=== PATIENT | male | born 1955 | race Caucasian/White ===

== ENCOUNTER 2016-12-21 00:43 | Inpatient (IN) | payer OTHER ==
[~2016-12-21] VITALS: Ht 175.3 cm; Wt 115.0 kg
[~2016-12-21 00:43] MED LIST: ALBU6.7H INH; AMLO10TA2 PO; CLON1PAT8 TP; FINA1TAB16 PO; FLUT1DIS3 INH; FURO20TA3 PO; GABA300C10 PO; HYDR25TA6 PO; LIBRIUM; LISI40TA PO; LOSA50TA6 PO; METF10002 PO; METO50TA82 PO; MONT10TA9 PO; OXYGEN INH; POTASSIUM PO; PRED10TA PO; TRAZ100T15 PO
[2016-12-21] MEDS ORDERED: ASPIRIN 81 MG TABLET CHEW PO ONE ×2 (02:00→02:30)
[2016-12-21] MEDS ORDERED: FUROSEMIDE 40 MG/4 ML IV ONE (02:00)
[2016-12-21] MEDS ORDERED: SODIUM CHLORIDE FLUSH 10ML SYR IVF ONE (02:00)
[2016-12-21] MEDS ORDERED: ENALAPRILAT 1.25 MG/ML, 2ML IV ONE (02:00)
[2016-12-21] MEDS ORDERED: FUROSEMIDE 20 MG/2 ML ONE (02:08)
[2016-12-21] MEDS ORDERED: ASPIRIN 81 MG TABLET CHEW ONE (02:08)
[2016-12-21] MEDS ORDERED: ENALAPRILAT 1.25 MG/ML, 2ML ONE (02:08)
[2016-12-21 02:12] LABS: ASPARTATE AMINO TRANSFERASE 55 U/L (15-37); BLOOD UREA NITROGEN 39 mg/dL (7-18)
[2016-12-21 02:18] LABS: IS PT STATUS REG ER OR PRE ER? YES
[2016-12-21] MEDS ORDERED: CEFTRIAXONE PMX 1GM/50ML 50 ML ONE (02:28)
[2016-12-21] MEDS ORDERED: AZITHROMYCIN 500 MG in SODIUM CHLORIDE 0.9% 250 ML IV ONE (02:30)
[2016-12-21] MEDS ORDERED: CEFTRIAXONE PMX 1GM/50ML 50 ML IV ONE (02:30)
[2016-12-21] MEDS ORDERED: ACETAMINOPHEN 325 MG TABLET PO PRN (04:30)
[2016-12-21] MEDS ORDERED: DOCUSATE 100 MG CAPSULE PO PRN (04:30)
[2016-12-21] MEDS ORDERED: BISACODYL 10 MG SUPP PR PRN (04:30)
[2016-12-21] MEDS ORDERED: POLYETHYLENE GLYCOL 17 GM PACKET PO PRN (04:30)
[2016-12-21] MEDS ORDERED: LABETALOL 5MG/ML, 20ML IV PRN (04:30)
[2016-12-21] MEDS: ONDANSETRON 2MG/ML, 2ML IVP PRN ×2 (04:48→10:46)
[2016-12-21 04:50] VITALS: BP 157/91
[2016-12-21] MEDS: AMPICILLIN/SULBACTAM 3 GM in SODIUM CHLORIDE 0.9% 100 ML IV SCH ×4 (05:20→22:36)
[2016-12-21 05:32] LABS: PATH.CAST-FLAG NOT PRESENT; SPERM-FLAG NOT PRESENT; SRC-FLAG NOT PRESENT; XTAL-FLAG NOT PRESENT; YLC-FLAG NOT PRESENT
[2016-12-21] MEDS: HEPARIN 5,000 UNITS/ML, 1ML SQ SCH ×3 (05:32→23:00)
[2016-12-21] MEDS ORDERED: ALBUTEROL SULFATE 2.5 MG/3 ML ONE (06:56)
[2016-12-21] MEDS: INSULIN ASPART 100 UNITS/ML, PEN SQ-INSULIN SCH ×4 (07:00→21:27)
[2016-12-21 07:36] VITALS: BP 150/93
[2016-12-21 08:08] LABS: BLOOD UREA NITROGEN 40 mg/dL (7-18)
[2016-12-21 08:20] LABS: IS PT STATUS REG ER OR PRE ER? NO
[2016-12-21] MEDS: FLUTICASONE/VILANTEROL 100-25MCG/INH INH SCH (09:00)
[2016-12-21] MEDS: GABAPENTIN 300 MG CAPSULE PO SCH ×3 (10:30→21:26)
[2016-12-21] MEDS: AMLODIPINE 5 MG TABLET PO SCH (10:30)
[2016-12-21] MEDS: HYDROCHLOROTHIAZIDE 25 MG TABLET PO SCH (10:30)
[2016-12-21] MEDS: METOPROLOL TARTRATE 50 MG TABLET PO SCH ×2 (10:30→21:26)
[2016-12-21] MEDS: FINASTERIDE 5 MG TABLET PO SCH (10:30)
[2016-12-21] MEDS: THIAMINE 100MG TABLET PO SCH (10:30)
[2016-12-21] MEDS: FOLIC ACID 1 MG TABLET PO SCH (10:30)
[2016-12-21] MEDS: MONTELUKAST 10 MG TABLET PO SCH (10:30)
[2016-12-21] MEDS: FUROSEMIDE 40 MG/4 ML IV SCH ×2 (10:36→17:18)
[2016-12-21] MEDS: ALBUTEROL SULFATE 2.5 MG/3 ML NPPB SCH ×3 (11:10→20:00)
[2016-12-21 14:53] LABS: IS PT STATUS REG ER OR PRE ER? NO
[2016-12-21] MEDS: methylPREDNISolone SOD SUCC 125 MG/2 ML IVPush SCH ×2 (15:11→21:26)
[2016-12-21 15:52] VITALS: BP 156/99
[2016-12-21] MEDS: PHENOL THROAT SPRAY BOTTLE MM PRN (18:00)
[2016-12-21 20:17] VITALS: BP 160/95
[2016-12-21] MEDS: TRAZODONE 50MG TABLET PO PRN (22:44)
[2016-12-22 02:00] VITALS: BP 145/82
[2016-12-22] MEDS: AMPICILLIN/SULBACTAM 3 GM in SODIUM CHLORIDE 0.9% 100 ML IV SCH ×4 (03:46→22:38)
[2016-12-22] MEDS: methylPREDNISolone SOD SUCC 125 MG/2 ML IVPush SCH ×3 (03:46→21:20)
[2016-12-22] MEDS: PHENOL THROAT SPRAY BOTTLE MM PRN ×2 (03:47→08:26)
[2016-12-22] MEDS: ALBUTEROL SULFATE 2.5 MG/3 ML NPPB SCH ×5 (04:40→19:10)
[2016-12-22 06:06] LABS: BLOOD UREA NITROGEN 38 mg/dL (7-18)
[2016-12-22] MEDS: HEPARIN 5,000 UNITS/ML, 1ML SQ SCH ×3 (08:12→22:39)
[2016-12-22] MEDS: FOLIC ACID 1 MG TABLET PO SCH (08:13)
[2016-12-22] MEDS: GABAPENTIN 300 MG CAPSULE PO SCH ×3 (08:13→21:20)
[2016-12-22] MEDS: THIAMINE 100MG TABLET PO SCH (08:13)
[2016-12-22] MEDS: MONTELUKAST 10 MG TABLET PO SCH (08:13)
[2016-12-22] MEDS: HYDROCHLOROTHIAZIDE 25 MG TABLET PO SCH (08:13)
[2016-12-22] MEDS: FUROSEMIDE 40 MG/4 ML IV SCH ×2 (08:13→16:38)
[2016-12-22] MEDS: AMLODIPINE 5 MG TABLET PO SCH (08:13)
[2016-12-22] MEDS: METOPROLOL TARTRATE 50 MG TABLET PO SCH ×2 (08:13→21:21)
[2016-12-22] MEDS: FINASTERIDE 5 MG TABLET PO SCH (08:13)
[2016-12-22] MEDS: FLUTICASONE/VILANTEROL 100-25MCG/INH INH SCH (08:14)
[2016-12-22] MEDS: INSULIN ASPART 100 UNITS/ML, PEN SQ-INSULIN SCH ×4 (08:16→21:21)
[2016-12-22 08:47] VITALS: BP 120/80
[2016-12-22 13:48] VITALS: BP 135/75
[2016-12-22] MEDS ORDERED: LORazepam 2 MG/ML, 1ML IV PRN ×5 (14:30)
[2016-12-22] MEDS ORDERED: LORazepam 1MG TABLET PO PRN ×4 (14:30)
[2016-12-22] MEDS ORDERED: LORazepam 0.5MG TABLET PO PRN (14:30)
[2016-12-22] MEDS: DOXYCYCLINE 100 MG in DEXTROSE 5% 250 ML IV SCH (16:38)
[2016-12-22 19:02] VITALS: BP 129/78
[2016-12-22 20:36] LABS: RAPID INFLUENZA A Negative (Negative); RAPID INFLUENZA B Negative (Negative)
[2016-12-22] MEDS: TRAZODONE 50MG TABLET PO PRN (22:39)
[2016-12-23] MEDS: DOXYCYCLINE 100 MG in DEXTROSE 5% 250 ML IV SCH (01:24)
[2016-12-23 02:25] VITALS: BP 144/94
[2016-12-23] MEDS: methylPREDNISolone SOD SUCC 125 MG/2 ML IVPush SCH ×2 (05:09→12:35)
[2016-12-23] MEDS: AMPICILLIN/SULBACTAM 3 GM in SODIUM CHLORIDE 0.9% 100 ML IV SCH ×2 (05:10→10:10)
[2016-12-23] MEDS: ALBUTEROL SULFATE 2.5 MG/3 ML NPPB SCH ×4 (07:07→19:27)
[2016-12-23 07:14] LABS: BLOOD UREA NITROGEN 34 mg/dL (7-18)
[2016-12-23 07:19] VITALS: BP 128/84
[2016-12-23] MEDS: HYDROCHLOROTHIAZIDE 25 MG TABLET PO SCH (08:04)
[2016-12-23] MEDS: FOLIC ACID 1 MG TABLET PO SCH (08:04)
[2016-12-23] MEDS: GABAPENTIN 300 MG CAPSULE PO SCH ×3 (08:04→21:01)
[2016-12-23] MEDS: FINASTERIDE 5 MG TABLET PO SCH (08:05)
[2016-12-23] MEDS: THIAMINE 100MG TABLET PO SCH (08:05)
[2016-12-23] MEDS: AMLODIPINE 5 MG TABLET PO SCH (08:05)
[2016-12-23] MEDS: MONTELUKAST 10 MG TABLET PO SCH (08:05)
[2016-12-23] MEDS: HEPARIN 5,000 UNITS/ML, 1ML SQ SCH ×2 (08:05→16:36)
[2016-12-23] MEDS: FUROSEMIDE 40 MG/4 ML IV SCH (08:06)
[2016-12-23] MEDS: TAMSULOSIN 0.4 MG CAP.ER.24H PO SCH (08:07)
[2016-12-23] MEDS: INSULIN ASPART 100 UNITS/ML, PEN SQ-INSULIN SCH ×4 (08:07→21:01)
[2016-12-23] MEDS: METOPROLOL TARTRATE 50 MG TABLET PO SCH ×2 (10:17→21:01)
[2016-12-23] MEDS: FLUTICASONE/VILANTEROL 100-25MCG/INH INH SCH (10:17)
[2016-12-23 14:00] VITALS: BP 137/80
[2016-12-23] MEDS: metroNIDAZOLE 500 MG TABLET PO SCH ×2 (16:35→21:01)
[2016-12-23] MEDS: ASPIRIN 81 MG TABLET EC PO SCH (16:35)
[2016-12-23 20:58] VITALS: BP 137/80
[2016-12-23] MEDS: CEFDINIR 300 MG CAPSULE PO SCH (21:02)
[2016-12-23] MEDS: DOXYCYCLINE 100MG TABLET PO SCH (21:02)
[2016-12-24] MEDS: TRAZODONE 50MG TABLET PO PRN (00:09)
[2016-12-24] MEDS: HEPARIN 5,000 UNITS/ML, 1ML SQ SCH ×3 (00:09→16:24)
[2016-12-24 02:55] VITALS: BP 156/100
[2016-12-24 05:06] LABS: BLOOD UREA NITROGEN 28 mg/dL (7-18)
[2016-12-24] MEDS: ASPIRIN 81 MG TABLET EC PO SCH (05:21)
[2016-12-24] MEDS: INSULIN ASPART 100 UNITS/ML, PEN SQ-INSULIN SCH ×2 (07:00→12:56)
[2016-12-24] MEDS: ALBUTEROL SULFATE 2.5 MG/3 ML NPPB SCH ×2 (07:33→10:37)
[2016-12-24 07:57] VITALS: BP 136/77
[2016-12-24] MEDS ORDERED: REGADENOSON 0.4 MG/5 ML SYRINGE ONE (08:43)
[2016-12-24] MEDS ORDERED: FUROSEMIDE 20 MG TABLET PO SCH (09:00)
[2016-12-24] MEDS ORDERED: NEUTRA PHOS K 250 MG TABLET PO ONE (11:00)
[2016-12-24] MEDS: AMLODIPINE 5 MG TABLET PO SCH (11:53)
[2016-12-24] MEDS: METOPROLOL TARTRATE 50 MG TABLET PO SCH (11:53)
[2016-12-24] MEDS: metroNIDAZOLE 500 MG TABLET PO SCH ×2 (11:53→16:23)
[2016-12-24] MEDS: FINASTERIDE 5 MG TABLET PO SCH (11:53)
[2016-12-24] MEDS: TAMSULOSIN 0.4 MG CAP.ER.24H PO SCH (11:53)
[2016-12-24] MEDS: FOLIC ACID 1 MG TABLET PO SCH (11:53)
[2016-12-24] MEDS: THIAMINE 100MG TABLET PO SCH (11:54)
[2016-12-24] MEDS: HYDROCHLOROTHIAZIDE 25 MG TABLET PO SCH (11:54)
[2016-12-24] MEDS: MONTELUKAST 10 MG TABLET PO SCH (11:54)
[2016-12-24] MEDS: CEFDINIR 300 MG CAPSULE PO SCH (11:54)
[2016-12-24] MEDS: GABAPENTIN 300 MG CAPSULE PO SCH ×2 (11:55→16:23)
[2016-12-24] MEDS: DOXYCYCLINE 100MG TABLET PO SCH (11:55)
[2016-12-24] MEDS: FLUTICASONE/VILANTEROL 100-25MCG/INH INH SCH (11:55)
[2016-12-24 14:00] VITALS: BP 130/86
[2016-12-24] MEDS ORDERED: ASPI-621 PO (15:11)
[2016-12-24] MEDS ORDERED: CEFD300C37 PO (15:11)
[2016-12-24] MEDS ORDERED: DOXY100T PO (15:11)
[2016-12-24] MEDS ORDERED: FOLI-17 PO (15:11)
[2016-12-24] MEDS ORDERED: METR500T PO (15:11)
[2016-12-24] MEDS ORDERED: TAMS-11 PO (15:11)
[2016-12-24] MEDS ORDERED: THIA100T6 PO (15:11)
[2016-12-24] MEDS ORDERED: PRED10TA PO (15:11)
[2016-12-24] MEDS ORDERED: POTASSIUM CHLORIDE 20 MEQ TAB.ER.PRT PO SCH (17:00)
== END 2016-12-24 18:00 | disposition home or self-care (01) | DRG 871 ==
LOC: ED 01:42 → EDIP 02:23 → 5SO 03:47 → DCLOUNGE 12-24 17:21
PROVIDERS: ADMIT Internal Medicine; ATTEND Internal Medicine
PROC: HZ34ZZZ Individual Counseling for Substance Abuse Treatment, Interpersonal (ICD-10-PCS; principal; 2016-12-21)
PROC: HZ2ZZZZ Detoxification Services for Substance Abuse Treatment (ICD-10-PCS; 2016-12-21)
DX: A41.9 Sepsis, unspecified organism (principal); I21.4 Non-ST elevation (NSTEMI) myocardial infarction; I50.33 Acute on chronic diastolic (congestive) heart failure; J96.20 Acute and chronic respiratory failure, unspecified whether with hypoxia or hypercapnia; J69.0 Pneumonitis due to inhalation of food and vomit; J44.1 Chronic obstructive pulmonary disease with (acute) exacerbation; N17.9 Acute kidney failure, unspecified; E87.1 Hypo-osmolality and hyponatremia; E87.2 Acidosis; J98.11 Atelectasis; E87.5 Hyperkalemia; E11.9 Type 2 diabetes mellitus without complications; I12.9 Hypertensive chronic kidney disease with stage 1 through stage 4 chronic kidney disease, or unspecified chronic kidney disease; F10.229 Alcohol dependence with intoxication, unspecified; Y90.9 Presence of alcohol in blood, level not specified; E66.01 Morbid (severe) obesity due to excess calories; I77.819 Aortic ectasia, unspecified site; N40.0 Benign prostatic hyperplasia without lower urinary tract symptoms; R65.20 Severe sepsis without septic shock; Z79.82 Long term (current) use of aspirin; Z87.891 Personal history of nicotine dependence; Z68.37 Body mass index [BMI] 37.0-37.9, adult; Z79.84 Long term (current) use of oral hypoglycemic drugs; Z79.899 Other long term (current) drug therapy
CPT/HCPCS: 36415; 71010; 71020; 76770; 78452; 80048; 80053; 80061; 80307; 81001; 82436; 82570; 82607; 82746; 82962; 83605; 83735; 83880; 84100; 84133; 84145; 84300; 84443; 84484; 85025; 85610; 87040; 87046; 87070; 87205; 87324; 87328; 87329; 87400; 93005; 93017; 93306; 94640; 96365; 96375; J0295; J0456; J0696; J1644; J1815; J1940; J2405; J2785; J7060; J7613; A9502; C9898; J2930; J7050; J7512

== ENCOUNTER 2017-04-29 11:35 | Inpatient (IN) | payer OTHER ==
[~2017-04-29] VITALS: Ht 177.8 cm; Wt 112.6 kg
[~2017-04-29 11:35] MED LIST changes: +ASPI-621 PO; +CEFD300C37 PO; +DOXY100T PO; +FOLI-17 PO; +METR500T PO; +TAMS-11 PO; +THIA100T6 PO
[2017-04-29] MEDS ORDERED: SODIUM CHLORIDE FLUSH 10ML SYR IVF ONE (12:00)
[2017-04-29 12:23] LABS: HEMATOCRIT 46.1 % (39.2-51.8); HEMOGLOBIN 15.4 g/dL (13.7-18.0); WHITE BLOOD COUNT 10.6 x10^3/uL (3.4-10)
[2017-04-29 12:37] LABS: ASPARTATE AMINO TRANSFERASE 17 U/L (15-37); BLOOD UREA NITROGEN 34 mg/dL (7-18)
[2017-04-29 12:44] LABS: IS PT STATUS REG ER OR PRE ER? YES
[2017-04-29] MEDS ORDERED: ONDANSETRON 2MG/ML, 2ML ONE (13:09)
[2017-04-29] MEDS ORDERED: FAMOTIDINE 20 MG/2 ML ONE (13:09)
[2017-04-29] MEDS ORDERED: MAALOX/HYOSCYAMINE/LIDOCAINE 45 ML BTL ONE (13:10)
[2017-04-29] MEDS ORDERED: LORazepam 2 MG/ML, 1ML ONE (13:11)
[2017-04-29] MEDS ORDERED: FAMOTIDINE 20 MG/2 ML IVPush ONE (13:30)
[2017-04-29] MEDS ORDERED: ONDANSETRON 2MG/ML, 2ML IVPush ONE (13:30)
[2017-04-29] MEDS ORDERED: MAALOX/HYOSCYAMINE/LIDOCAINE 45 ML BTL PO ONE (13:30)
[2017-04-29] MEDS ORDERED: LORazepam 2 MG/ML, 1ML IVPush ONE (13:30)
[2017-04-29] MEDS ORDERED: POLYETHYLENE GLYCOL 17 GM PACKET PO PRN (14:00)
[2017-04-29] MEDS ORDERED: GLUCAGON 1 MG IM PRN (14:00)
[2017-04-29] MEDS ORDERED: NITROGLYCERIN 0.4 MG/SPRAY SL PRN (14:00)
[2017-04-29] MEDS ORDERED: LORazepam 1MG TABLET PO PRN (14:00)
[2017-04-29] MEDS ORDERED: BISACODYL 10 MG SUPP PR PRN (14:00)
[2017-04-29] MEDS ORDERED: ACETAMINOPHEN 325 MG TABLET PO PRN (14:00)
[2017-04-29] MEDS ORDERED: DOCUSATE 100 MG CAPSULE PO PRN (14:00)
[2017-04-29] MEDS ORDERED: DEXTROSE 4 GM TAB.CHEW PO PRN (14:00)
[2017-04-29] MEDS ORDERED: LABETALOL 5MG/ML, 20ML IVPush PRN (14:00)
[2017-04-29] MEDS ORDERED: ONDANSETRON 2MG/ML, 2ML IVPush PRN (14:00)
[2017-04-29] MEDS ORDERED: DEXTROSE 50%, 50ML SYRINGE IVPush PRN (14:00)
[2017-04-29] MEDS ORDERED: FUROSEMIDE 20 MG/2 ML IV ONE (14:00)
[2017-04-29] MEDS ORDERED: ONDANSETRON ODT 4 MG PO PRN (14:00)
[2017-04-29] MEDS ORDERED: MORPHINE SULFATE 4 MG/ML, 1ML IVPush PRN (14:00)
[2017-04-29 15:10] VITALS: BP 177/93
[2017-04-29] MEDS ORDERED: ALBUTEROL SULFATE 2.5 MG/3 ML ONE (15:54)
[2017-04-29] MEDS ORDERED: ALBUTEROL SULFATE 2.5 MG/3 ML NPPB PRN (16:30)
[2017-04-29] MEDS: GABAPENTIN 300 MG CAPSULE PO SCH ×2 (17:28→22:06)
[2017-04-29] MEDS: ENOXAPARIN 40 MG/0.4 ML SQ SCH (17:28)
[2017-04-29] MEDS: INSULIN ASPART 100 UNITS/ML, PEN SQ-INSULIN SCH ×2 (17:39→22:10)
[2017-04-29 19:18] LABS: IS PT STATUS REG ER OR PRE ER? NO
[2017-04-29 19:43] VITALS: BP 169/96
[2017-04-29] MEDS: ALBUTEROL SULFATE 2.5 MG/3 ML NPPB SCH (20:00)
[2017-04-29] MEDS ORDERED: LORazepam 2 MG/ML, 1ML IVPush PRN (20:00)
[2017-04-29 20:27] LABS: PATH.CAST-FLAG NOT PRESENT; SPERM-FLAG NOT PRESENT; SRC-FLAG NOT PRESENT; XTAL-FLAG NOT PRESENT; YLC-FLAG NOT PRESENT
[2017-04-29] MEDS ORDERED: TRAZODONE 100MG TABLET PO SCH (21:00)
[2017-04-29] MEDS: METOPROLOL TARTRATE 50 MG TABLET PO SCH (22:06)
[2017-04-29] MEDS: SODIUM CHLORIDE FLUSH 10ML SYR IVF SCH (22:06)
[2017-04-30 01:04] LABS: IS PT STATUS REG ER OR PRE ER? NO
[2017-04-30 01:56] VITALS: BP 159/88
[2017-04-30 05:44] LABS: HEMATOCRIT 44.6 % (39.2-51.8); HEMOGLOBIN 14.9 g/dL (13.7-18.0); WHITE BLOOD COUNT 7.4 x10^3/uL (3.4-10)
[2017-04-30] MEDS ORDERED: ASPIRIN 81 MG TABLET EC PO SCH (06:00)
[2017-04-30 06:10] LABS: ASPARTATE AMINO TRANSFERASE 12 U/L (15-37); BLOOD UREA NITROGEN 26 mg/dL (7-18)
[2017-04-30 06:19] LABS: DIFF TOTAL CELLS COUNTED 100 CELL DIFF
[2017-04-30] MEDS: OXYcodone IR 5MG TABLET PO PRN ×2 (06:28→12:55)
[2017-04-30 06:44] LABS: VERIFY COUNTS? YES
[2017-04-30] MEDS: INSULIN ASPART 100 UNITS/ML, PEN SQ-INSULIN SCH ×3 (07:00→16:00)
[2017-04-30] MEDS: ALBUTEROL SULFATE 2.5 MG/3 ML NPPB SCH ×3 (07:44→15:04)
[2017-04-30] MEDS ORDERED: TAMSULOSIN 0.4 MG CAP.ER.24H PO SCH (09:00)
[2017-04-30] MEDS ORDERED: THIAMINE 100MG TABLET PO SCH (09:00)
[2017-04-30] MEDS ORDERED: MONTELUKAST 10 MG TABLET PO SCH (09:00)
[2017-04-30] MEDS ORDERED: FOLIC ACID 1 MG TABLET PO SCH (09:00)
[2017-04-30] MEDS ORDERED: FUROSEMIDE 20 MG TABLET PO SCH (09:00)
[2017-04-30] MEDS ORDERED: LISINOPRIL 20 MG TABLET PO SCH (09:00)
[2017-04-30 09:04] VITALS: BP 161/92
[2017-04-30] MEDS: SODIUM CHLORIDE FLUSH 10ML SYR IVF SCH (09:11)
[2017-04-30] MEDS: GABAPENTIN 300 MG CAPSULE PO SCH ×2 (09:11→16:19)
[2017-04-30] MEDS: METOPROLOL TARTRATE 50 MG TABLET PO SCH (09:11)
[2017-04-30] MEDS ORDERED: FUROSEMIDE 40 MG/4 ML IV ONE (09:30)
[2017-04-30 10:12] VITALS: BP 152/83
[2017-04-30] MEDS: AMLODIPINE 5 MG TABLET PO SCH ×2 (10:13→12:41)
[2017-04-30] MEDS: ENOXAPARIN 40 MG/0.4 ML SQ SCH (16:00)
== END 2017-04-30 17:44 | disposition home or self-care (01) | DRG 896 ==
LOC: ED 12:20 → EDIP 12:50 → 5SO 15:12
PROVIDERS: ADMIT Internal Medicine; ATTEND Internal Medicine
DX: F10.229 Alcohol dependence with intoxication, unspecified (principal); I50.33 Acute on chronic diastolic (congestive) heart failure; J96.10 Chronic respiratory failure, unspecified whether with hypoxia or hypercapnia; E87.2 Acidosis; I11.0 Hypertensive heart disease with heart failure; E11.42 Type 2 diabetes mellitus with diabetic polyneuropathy; D72.829 Elevated white blood cell count, unspecified; D75.89 Other specified diseases of blood and blood-forming organs; E66.9 Obesity, unspecified; E87.5 Hyperkalemia; F41.1 Generalized anxiety disorder; G89.29 Other chronic pain; J44.9 Chronic obstructive pulmonary disease, unspecified; N40.0 Benign prostatic hyperplasia without lower urinary tract symptoms; Z87.891 Personal history of nicotine dependence; Z91.14 Patient's other noncompliance with medication regimen; Z99.81 Dependence on supplemental oxygen; I71.2 Thoracic aortic aneurysm, without rupture
CPT/HCPCS: 36415; 71010; 80053; 80307; 81001; 82962; 83690; 83735; 83880; 84100; 84132; 84484; 85025; 85610; 93005; 93970; 94640; 96374; 96375; J1650; J1815; J1940; J2405; J7613; J2060; S0028

== ENCOUNTER 2017-10-04 17:10 | Emergency (ER) | payer OTHER ==
[~2017-10-04] VITALS: Ht 177.8 cm; Wt 120.0 kg
[2017-10-04] MEDS ORDERED: OXYcodone/APAP 5/325MG TABLET ONE (18:49)
[2017-10-04] MEDS ORDERED: OXYcodone/APAP 5/325MG TABLET PO ONE (19:00)
[2017-10-04 19:12] LABS: BASOPHILS # (AUTO) 0.02 x10^3/uL (0-0.1); BASOPHILS % (AUTO) 0 % (0-1); EOSINOPHILS # (AUTO) 0.38 x10^3/uL (0-0.4); EOSINOPHILS % (AUTO) 3 % (1-7); LYMPHOCYTES # (AUTO) 0.99 x10^3/uL (1-3.4); LYMPHOCYTES % (AUTO) 8 % (22-44); MD NO; MEAN CORPUSCULAR HEMOGLOBIN 33.9 pg (27.5-34.5); MEAN CORPUSCULAR HGB CONC 33.6 g/dL (33.2-36.2); MEAN CORPUSCULAR VOLUME 100.9 fL (81-97); MONOCYTES # (AUTO) 0.59 x10^3/uL (0.2-0.8); MONOCYTES % (AUTO) 5 % (2-9); NEUTROPHILS # (AUTO) 10.79 x10^3/uL (1.8-6.8); NEUTROPHILS % (AUTO) 85 % (42-75); PLATELET COUNT 231 x10^3/uL (130-400); RED CELL DISTRIBUTION WIDTH 15.8 % (9.4-14.8)
[2017-10-04 19:26] LABS: ANION GAP 6 mmol/L (5-15); CALCIUM 9.6 mg/dL (8.5-10.1); CHLORIDE 102 mmol/L (98-107)
[2017-10-04 19:27] LABS: CREATININE 1.08 mg/dL (0.7-1.3)
[2017-10-04] MEDS ORDERED: COLCHICINE 0.6 MG TABLET PO ONE (20:00)
[2017-10-04 21:04] VITALS: BP 149/91
== END 2017-10-04 21:19 | disposition home or self-care (01) ==
LOC: ED 21:13
DX: M25.512 Pain in left shoulder (principal); M79.645 Pain in left finger(s); M13.0 Polyarthritis, unspecified; M10.9 Gout, unspecified; E11.9 Type 2 diabetes mellitus without complications; J44.9 Chronic obstructive pulmonary disease, unspecified; I50.9 Heart failure, unspecified; I11.0 Hypertensive heart disease with heart failure
CPT/HCPCS: 36415; 80048; 84550; 85025; 93005; 99285

== ENCOUNTER 2018-12-15 21:18 | Emergency (ER) | payer OTHER ==
[~2018-12-15] VITALS: Ht 177.8 cm; Wt 118.0 kg
[~2018-12-15 21:18] MED LIST changes: -AMLO10TA2 PO; +AMLO10TA8 PO; -ASPI-621 PO; +ASPI81TA45 PO; +GLYB2.5T2 PO; +LOSA50TA14 PO; -LOSA50TA6 PO; -THIA100T6 PO; +THIA100T67 PO; +TRAZ-137 PO; -TRAZ100T15 PO
--- NOTE | 2018-12-15 21:30 | NUR ---
CHARLES. REPORT RECEIVED FROM EMS. PT ETOH AT HOME AND HAD GLF, HITTING ON LEFT SIDE OF HEAD, SMALL LAC NOTED. BLEEDING CONTROLED. NO LOC. NO BACK/NECK PAIN. PT'S AOX4. RESPS EVEN AND UNLABORED. ALL MONITORS IN PLACE. CALL LIGHT WITHIN REACH. EKG DONE AT BEDSIDE BY EMT.
--- NOTE | 2018-12-15 21:47 | NUR ---
PT IN CT NOW.
[2018-12-15] MEDS ORDERED: LIDOCAINE-MPF 1%, 2ML ONE (21:53)
[2018-12-15] MEDS ORDERED: LIDOCAINE-MPF 1%, 5ML INFIL ONE (22:00)
--- NOTE | 2018-12-15 22:05 | NUR ---
PT BACK TO ROOM FROM CT.
[2018-12-15 22:19] LABS: BASOPHILS # (AUTO) 0.02 x10^3/uL (0-0.1); BASOPHILS % (AUTO) 0 % (0-1); EOSINOPHILS # (AUTO) 0.23 x10^3/uL (0-0.4); EOSINOPHILS % (AUTO) 3 % (1-7); LYMPHOCYTES # (AUTO) 1.43 x10^3/uL (1-3.4); LYMPHOCYTES % (AUTO) 16 % (22-44); MD NO; MEAN CORPUSCULAR HEMOGLOBIN 32.8 pg (27.5-34.5); MEAN CORPUSCULAR VOLUME 99.5 fL (81-97); MEAN PLATELET VOLUME 7.6 fL (7.4-10.4); MONOCYTES % (AUTO) 3 % (2-9); NEUTROPHILS # (AUTO) 7.11 x10^3/uL (1.8-6.8); NEUTROPHILS % (AUTO) 78 % (42-75); PLATELET COUNT 178 x10^3/uL (130-400); RED BLOOD COUNT 4.28 x10^6/uL (4.38-5.82); RED CELL DISTRIBUTION WIDTH 15.8 % (9.4-14.8)
[2018-12-15 22:27] LABS: INTERNATIONAL NORMALIZED RATIO 1.01 (0.93-1.1); PROTHROMBIN TIME 10.6 Seconds (9.6-11.5)
[2018-12-15 22:30] LABS: ALBUMIN 3.5 g/dL (3.4-5.0); ANION GAP 5 mmol/L (5-15); CALCIUM 9.5 mg/dL (8.5-10.1); CHLORIDE 100 mmol/L (98-107)
[2018-12-15] MEDS ORDERED: ALBUTEROL/IPRATROPIUM 2.5MG/0.5MG, 3 ML NPPB ONE (22:30)
[2018-12-15 22:34] LABS: ALANINE AMINOTRANSFERASE 26 U/L (12-78); ALKALINE PHOSPHATASE 92 U/L (45-117); BILIRUBIN,TOTAL 0.2 mg/dL (0.2-1.0); CREATININE 1.23 mg/dL (0.7-1.3); TOTAL PROTEIN 7.3 g/dL (6.4-8.2)
[2018-12-15] MEDS ORDERED: ALBUTEROL/IPRATROPIUM 2.5MG/0.5MG, 3 ML ONE ×2 (22:38→23:21)
[2018-12-15] MEDS ORDERED: LIDOCAINE 1%-EPI 1:100K, 20ML ONE (22:59)
--- NOTE | 2018-12-15 23:17 | NUR ---
PA APPLIED SUTURES ON WOUND. PT TOLERATED WELL.
--- NOTE | 2018-12-15 23:24 | NUR ---
RT AT BEDSIDE NOW.
[2018-12-15] MEDS ORDERED: ALBUTEROL SULFATE 2.5 MG/3 ML NPPB ONE (23:30)
--- NOTE | 2018-12-16 00:29 | NUR ---
PT IS ABLE TO AMB WITH STEADY GAIT. DC NOW.
[2018-12-16 00:53] VITALS: BP 132/85
--- NOTE | 2018-12-16 00:54 | NUR ---
PT GIVEN DC INSTRUCTIONS. PT'S AT BEDSIDE TO HELP PT. PT'S AOX4. RESPS EVEN AND UNLABORED. PT WHEELED TO DC. NO ACUTE DISTRESS AT DC.
== END 2018-12-16 00:55 | disposition home or self-care (01) ==
LOC: ED 21:21
DX: S01.81XA Laceration without foreign body of other part of head, initial encounter (principal); F10.221 Alcohol dependence with intoxication delirium; R41.0 Disorientation, unspecified; R51 Headache; W01.0XXA Fall on same level from slipping, tripping and stumbling without subsequent striking against object, initial encounter; Y93.01 Activity, walking, marching and hiking; Y92.009 Unspecified place in unspecified non-institutional (private) residence as the place of occurrence of the external cause; Y99.8 Other external cause status
CPT/HCPCS: 12052; 36415; 70450; 72125; 80053; 80307; 83735; 85025; 85610; 85730; 93005; 94640; 99284; J7620

== ENCOUNTER 2019-01-16 13:47 | Observation (INO) | payer OTHER ==
[~2019-01-16] VITALS: Ht 177.8 cm; Wt 126.1 kg
[2019-01-16] MEDS ORDERED: SODIUM CHLORIDE FLUSH 10ML SYR IVF ONE (14:30)
--- NOTE | 2019-01-16 14:38 | NUR ---
63 YEAR OLD MAN CALLED EMS BECAUSE HE WAS SOB AND HAD CHEST PAIN. PT REPORTS HE HAS COPD, ALWAYS ON 4 L. PT HAS HX OF HTN, DM, ARTHRITIS, CHF. PT IS ALERT/ORIENTED AND ANSWERS QUESTIONS APPROPRIATELY. PT REPORTS THAT YESTERDAY NIGHT, "I FELL AND HIT MY HEAD, THAT IS HOW I GOT THIS CUT ON MY HEAD" PT ALSO STATES, "I HAD ABOUT A PINT OF ALCOHOL TO DRINK WHEN I FELL".
[2019-01-16 14:48] LABS: BASOPHILS # (AUTO) 0.03 x10^3/uL (0-0.1); BASOPHILS % (AUTO) 0 % (0-1); EOSINOPHILS % (AUTO) 0 % (1-7); LYMPHOCYTES # (AUTO) 0.33 x10^3/uL (1-3.4); LYMPHOCYTES % (AUTO) 3 % (22-44); MD NO; MEAN CORPUSCULAR HEMOGLOBIN 33.6 pg (27.5-34.5); MEAN CORPUSCULAR HGB CONC 33.7 g/dL (33.2-36.2); MEAN CORPUSCULAR VOLUME 99.7 fL (81-97); MEAN PLATELET VOLUME 7.6 fL (7.4-10.4); MONOCYTES # (AUTO) 0.66 x10^3/uL (0.2-0.8); MONOCYTES % (AUTO) 7 % (2-9); NEUTROPHILS # (AUTO) 9.08 x10^3/uL (1.8-6.8); NEUTROPHILS % (AUTO) 90 % (42-75); PLATELET COUNT 133 x10^3/uL (130-400); RED BLOOD COUNT 3.86 x10^6/uL (4.38-5.82); RED CELL DISTRIBUTION WIDTH 15.3 % (9.4-14.8)
[2019-01-16 14:57] LABS: INTERNATIONAL NORMALIZED RATIO 0.98 (0.93-1.1); PROTHROMBIN TIME 10.3 Seconds (9.6-11.5)
[2019-01-16 15:00] LABS: ALANINE AMINOTRANSFERASE 29 U/L (12-78); ALBUMIN 3.4 g/dL (3.4-5.0); ANION GAP 13 mmol/L (5-15); CALCIUM 8.9 mg/dL (8.5-10.1); CHLORIDE 95 mmol/L (98-107)
[2019-01-16 15:04] LABS: ALKALINE PHOSPHATASE 105 U/L (45-117); BILIRUBIN,TOTAL 1.4 mg/dL (0.2-1.0); TROPONIN I 0.035 ng/mL (0.000-0.045)
[2019-01-16] MEDS ORDERED: LORazepam 2 MG/ML, 1ML IVPush ONE (16:00)
[2019-01-16] MEDS ORDERED: MAGNESIUM SULFATE 1 GM, THIAMINE 100 MG, FOLIC ACID 1 MG, MVI ADULT 10 ML in SODIUM CHL... IV ONE (16:00)
[2019-01-16] MEDS ORDERED: SODIUM CHLORIDE 0.9% 1,000 ML IV SCH (16:17)
[2019-01-16] MEDS ORDERED: LORazepam 2 MG/ML, 1ML IV PRN ×4 (16:30)
[2019-01-16] MEDS ORDERED: ONDANSETRON 2MG/ML, 2ML IVPush PRN (16:30)
[2019-01-16] MEDS ORDERED: CHLORDIAZEPOXIDE 25 MG CAPSULE PO PRN (16:30)
[2019-01-16] MEDS ORDERED: LORazepam 0.5MG TABLET PO PRN (16:30)
[2019-01-16] MEDS ORDERED: GABAPENTIN 300 MG CAPSULE PO PRN (16:30)
[2019-01-16] MEDS ORDERED: LORazepam 1MG TABLET PO PRN ×3 (16:30)
[2019-01-16] MEDS ORDERED: THIAMINE 100MG TABLET PO ONE (16:30)
[2019-01-16] MEDS ORDERED: ONDANSETRON ODT 4 MG PO PRN (16:30)
[2019-01-16] MEDS ORDERED: hydrALAzine 20 MG/ML, 1ML IVPush PRN (16:30)
[2019-01-16] MEDS ORDERED: LABETALOL 5 MG/ML SYRINGE IVPush PRN (16:30)
[2019-01-16] MEDS ORDERED: HYDROcodone/APAP 5/325 TABLET PO PRN (16:30)
[2019-01-16] MEDS ORDERED: morphine SULFATE 10 MG/ML, 1ML IVPush PRN (16:30)
[2019-01-16] MEDS ORDERED: ACETAMINOPHEN 325 MG TABLET PO PRN (16:30)
--- NOTE | 2019-01-16 16:36 | NUR ---
REPORT GIVEN TO LAUREL
[2019-01-16 16:47] LABS: HEMOGLOBIN A1C 6.8 % (4.2-6.3)
[2019-01-16 16:55] VITALS: BP 138/79
[2019-01-16] MEDS ORDERED: ALBUTEROL SULFATE 2.5 MG/3 ML NPPB PRN (17:00)
[2019-01-16 17:16] VITALS: BP 138/74
[2019-01-16] MEDS: CYCLOBENZAPRINE 10 MG TABLET PO SCH ×2 (17:41→20:44)
[2019-01-16] MEDS: OXYcodone IR 5MG TABLET PO SCH ×2 (17:41→20:44)
[2019-01-16] MEDS: GUAIFENESIN 200 MG TABLET PO SCH ×2 (17:42→20:43)
[2019-01-16] MEDS: INSULIN LISPRO 100 UNITS/ML, PEN SQ-INSULIN SCH ×2 (18:01→20:43)
[2019-01-16 19:56] VITALS: BP 115/68
[2019-01-16] MEDS: ALBUTEROL SULFATE 2.5 MG/3 ML NPPB SCH (20:00)
[2019-01-16] MEDS: METOPROLOL TARTRATE 50 MG TABLET PO SCH (20:44)
[2019-01-16] MEDS: GABAPENTIN 300 MG CAPSULE PO SCH (20:44)
[2019-01-17 02:41] VITALS: BP 126/77
[2019-01-17] MEDS: GUAIFENESIN 200 MG TABLET PO SCH ×4 (04:58→20:24)
[2019-01-17] MEDS: OXYcodone IR 5MG TABLET PO SCH ×4 (04:58→20:24)
[2019-01-17 06:19] LABS: ALANINE AMINOTRANSFERASE 23 U/L (12-78); ALBUMIN 2.6 g/dL (3.4-5.0); ANION GAP 7 mmol/L (5-15); CALCIUM 8.4 mg/dL (8.5-10.1); CHLORIDE 104 mmol/L (98-107); CREATININE 1.26 mg/dL (0.7-1.3)
[2019-01-17 06:21] LABS: ALKALINE PHOSPHATASE 88 U/L (45-117); BILIRUBIN,TOTAL 1.2 mg/dL (0.2-1.0); TOTAL PROTEIN 5.8 g/dL (6.4-8.2)
[2019-01-17] MEDS: ALBUTEROL SULFATE 2.5 MG/3 ML NPPB SCH ×4 (07:00→18:51)
[2019-01-17] MEDS: INSULIN LISPRO 100 UNITS/ML, PEN SQ-INSULIN SCH ×4 (07:00→20:24)
[2019-01-17] MEDS ORDERED: DEXTROSE 50%, 50ML SYRINGE IVPush PRN (07:30)
[2019-01-17] MEDS ORDERED: GLUCAGON 1 MG IM PRN (07:30)
[2019-01-17] MEDS ORDERED: DEXTROSE 4 GM TAB.CHEW PO PRN (07:30)
[2019-01-17 07:35] VITALS: BP 144/81
[2019-01-17 07:53] LABS: BASOPHILS # (AUTO) 0.03 x10^3/uL (0-0.1); BASOPHILS % (AUTO) 0 % (0-1); EOSINOPHILS # (AUTO) 0.04 x10^3/uL (0-0.4); EOSINOPHILS % (AUTO) 1 % (1-7); LYMPHOCYTES % (AUTO) 9 % (22-44); MD NO; MEAN CORPUSCULAR HEMOGLOBIN 33.5 pg (27.5-34.5); MEAN CORPUSCULAR VOLUME 101.3 fL (81-97); MEAN PLATELET VOLUME 8.1 fL (7.4-10.4); MONOCYTES # (AUTO) 0.61 x10^3/uL (0.2-0.8); MONOCYTES % (AUTO) 8 % (2-9); NEUTROPHILS # (AUTO) 6.73 x10^3/uL (1.8-6.8); NEUTROPHILS % (AUTO) 83 % (42-75); PLATELET COUNT 106 x10^3/uL (130-400); RED BLOOD COUNT 3.38 x10^6/uL (4.38-5.82); RED CELL DISTRIBUTION WIDTH 15.9 % (9.4-14.8)
[2019-01-17] MEDS: SODIUM CHLORIDE FLUSH 10ML SYR IVF SCH ×2 (09:00→20:25)
[2019-01-17] MEDS ORDERED: LISINOPRIL 40 MG TABLET PO SCH (09:00)
[2019-01-17] MEDS ORDERED: FOLIC ACID 1 MG TABLET PO SCH (09:00)
[2019-01-17] MEDS: FOLIC ACID 1 MG TABLET PO SCH (09:49)
[2019-01-17] MEDS: CYCLOBENZAPRINE 10 MG TABLET PO SCH ×3 (09:49→20:24)
[2019-01-17] MEDS: TAMSULOSIN 0.4 MG CAP.ER.24H PO SCH (09:49)
[2019-01-17] MEDS: GABAPENTIN 300 MG CAPSULE PO SCH ×3 (09:49→20:24)
[2019-01-17] MEDS: METOPROLOL TARTRATE 50 MG TABLET PO SCH ×2 (09:49→20:25)
[2019-01-17] MEDS: MONTELUKAST 10 MG TABLET PO SCH (09:49)
[2019-01-17] MEDS: MULTIVITAMIN 1 TABLET PO SCH (09:49)
[2019-01-17 13:22] VITALS: BP 102/60
[2019-01-17 19:28] VITALS: BP 95/59
[2019-01-18 03:03] VITALS: BP 113/71
[2019-01-18] MEDS: GUAIFENESIN 200 MG TABLET PO SCH ×3 (04:30→15:28)
[2019-01-18] MEDS: OXYcodone IR 5MG TABLET PO SCH ×2 (04:30→10:43)
[2019-01-18] MEDS: ALBUTEROL SULFATE 2.5 MG/3 ML NPPB SCH ×3 (05:14→10:51)
[2019-01-18 05:16] LABS: ALANINE AMINOTRANSFERASE 21 U/L (12-78); ALBUMIN 2.7 g/dL (3.4-5.0); ANION GAP 4 mmol/L (5-15); CALCIUM 8.7 mg/dL (8.5-10.1); CHLORIDE 100 mmol/L (98-107)
[2019-01-18 05:19] LABS: ALKALINE PHOSPHATASE 76 U/L (45-117); BILIRUBIN,TOTAL 0.9 mg/dL (0.2-1.0); CREATININE 1.18 mg/dL (0.7-1.3); TOTAL PROTEIN 5.9 g/dL (6.4-8.2)
[2019-01-18] MEDS: INSULIN LISPRO 100 UNITS/ML, PEN SQ-INSULIN SCH ×2 (07:00→12:06)
[2019-01-18 08:00] VITALS: BP 99/64
[2019-01-18] MEDS: TAMSULOSIN 0.4 MG CAP.ER.24H PO SCH (08:18)
[2019-01-18] MEDS: FOLIC ACID 1 MG TABLET PO SCH (08:18)
[2019-01-18] MEDS: MULTIVITAMIN 1 TABLET PO SCH (08:18)
[2019-01-18] MEDS: METOPROLOL TARTRATE 50 MG TABLET PO SCH (08:18)
[2019-01-18] MEDS: GABAPENTIN 300 MG CAPSULE PO SCH ×2 (08:18→15:28)
[2019-01-18] MEDS: CYCLOBENZAPRINE 10 MG TABLET PO SCH ×2 (08:18→15:28)
[2019-01-18] MEDS: MONTELUKAST 10 MG TABLET PO SCH (08:18)
[2019-01-18] MEDS: SODIUM CHLORIDE FLUSH 10ML SYR IVF SCH (08:20)
[2019-01-18] MEDS: IBUPROFEN 200 MG TABLET PO SCH ×2 (08:21→14:36)
[2019-01-18] MEDS ORDERED: LISINOPRIL 10 MG TABLET PO SCH (09:00)
[2019-01-18] MEDS ORDERED: FOLI-17 PO (10:46)
[2019-01-18] MEDS ORDERED: IBUP-1484 PO (10:46)
[2019-01-18] MEDS ORDERED: ACET325T14 PO (10:46)
[2019-01-18] MEDS ORDERED: THIA100T67 PO (10:47)
[2019-01-18] MEDS ORDERED: PHOS250T3 PO (13:15)
[2019-01-18] MEDS ORDERED: OXYC5TAB2 PO (15:56)
== END 2019-01-18 16:05 | disposition home health service (06) ==
LOC: ED 16:27 → 4EST 16:49 → ED 17:14 → 4EST 17:15 → INTOOBSV 17:15 → DCLOUNGE 01-18 15:54
PROVIDERS: ADMIT Internal Medicine; ATTEND Internal Medicine
DX: S22.32XA Fracture of one rib, left side, initial encounter for closed fracture (principal); E87.1 Hypo-osmolality and hyponatremia; N17.9 Acute kidney failure, unspecified; E11.9 Type 2 diabetes mellitus without complications; D50.9 Iron deficiency anemia, unspecified; J44.9 Chronic obstructive pulmonary disease, unspecified; I10 Essential (primary) hypertension; N40.0 Benign prostatic hyperplasia without lower urinary tract symptoms; E66.01 Morbid (severe) obesity due to excess calories; F10.239 Alcohol dependence with withdrawal, unspecified; J98.11 Atelectasis; W19.XXXA Unspecified fall, initial encounter; Y93.89 Activity, other specified; Y92.89 Other specified places as the place of occurrence of the external cause; Z79.4 Long term (current) use of insulin; Z79.82 Long term (current) use of aspirin; Z79.899 Other long term (current) drug therapy
CPT/HCPCS: 36415; 71045; 71101; 80053; 80307; 82962; 83036; 83735; 83880; 84100; 84484; 85025; 85610; 93005; 94640; 96365; 96366; 96372; 96375; 97163; 97166; 99291; G0378; J1815; J2060; J3411; J3475; J7030; J7613